=== PATIENT | male | born 1970 | race Caucasian/White ===

== ENCOUNTER → 2024-02-17 07:06 | Outpatient (REF) | payer BC, SELFPAY | LOC: RAD 07:06 | PROVIDERS: ATTENDING PHYSICIAN Internal Medicine | DX: I10 Essential (primary) hypertension (principal); Z82.41 Family history of sudden cardiac death; R93.1 Abnormal findings on diagnostic imaging of heart and coronary circulation; R09.89 Other specified symptoms and signs involving the circulatory and respiratory systems | CPT/HCPCS: 71275; 76770; Q9967 ==

== ENCOUNTER → 2024-08-16 15:02 | Outpatient (REF) | payer BC, SELFPAY | LOC: RAD 15:02 | PROVIDERS: ATTENDING PHYSICIAN Nurse Practitioner Family; FAMILY PHYSICIAN Internal Medicine | DX: R05.3 Chronic cough (principal); J34.89 Other specified disorders of nose and nasal sinuses; J06.9 Acute upper respiratory infection, unspecified | CPT/HCPCS: 71046 ==

== ENCOUNTER 2024-10-04 06:16 | Day surgery (SDC) | payer OTHER, SELFPAY | END 2024-10-04 15:23 | disposition home or self-care (01) | LOC: GI 06:16 | PROVIDERS: ATTENDING PHYSICIAN Surgery | DX: Z12.11 Encounter for screening for malignant neoplasm of colon (principal) | CPT/HCPCS: G0121 ==

== ENCOUNTER 2024-12-08 10:18 | Emergency (ER) | payer OTHER, SELFPAY ==
[2024-12-08 10:22] VITALS: BP 194/117
--- NOTE | 2024-12-08 11:18 | ED.GENMED ---
History of Present Illness
General
Chief Complaint: Cardiac Symptoms
Source: patient
Time Seen by Provider: 12/08/24 11:04
History of Present Illness
History of Present Illness:
54-year-old male with past medical history of hypertension and hyperlipidemia presenting to the ER from outpatient surgery center for evaluation after he was scheduled to undergo a hemorrhoidectomy that was found on routine colonoscopy, upon
checking vital signs was found to be in a new onset atrial fibrillation. Patient without any symptoms. He is denying any chest pain, shortness of breath, palpitations, diaphoresis, exertional dyspnea, orthopnea, cough, fevers or recent illnesses
or any other concerns. He notes that he has seen a regulatory affairs manager once before for routine monitoring of his aorta after his mother had from a [employer] states that the studies all came back normal so he does not follow with a regulatory affairs manager
regularly. Social history was noted for drinking 3 beers a few times per week. Denies any cigarettes or tobacco use.
Past History
Past History
ED Past Medical History: GERD, HTN and Hypercholesterolemia
ED Past Surgical History: None
Social History
Tobacco: Non-smoker
Alcohol: Occasional
Drug: None
Personal:
Living: with family
Review of Systems
Review of Systems
All Other Systems: ROS reviewed and negative except as documented in HPI and ROS
Phy Exam
Physical Exam
Physical Exam:
GENERAL: Alert , in no apparent distress
EYE: clear conjunctiva
NECK: Supple
ENT: o/p clr, mmm.
CARDIAC: Irregularly irregular, tachycardic, rates between 110 bpm in the 146 bpm
LUNGS: Clear breath sounds bilaterally, no acute respiratory distress
ABDOMEN: Soft, without focal tenderness, no r/g, no cvat
NEUROLOGICAL: Alert and oriented
SKIN: Warm and dry, skin intact.
MUSCULOSKELETAL: No edema, well perfused.
PSYCH: Normal and appropriate interaction.
Scores
[id number] Score for Afib Stroke Risk
Age in Years (65=0, 65-74=1, >/=75=2): <65
Sex (Female=+1): Male
Congestive Heart Failure History (Yes=+1): No
Hypertension History (Yes=+1): Yes
Stroke/TIA/Thromboembolism History (Yes=+2): No
Vascular Disease History (Yes=+1): No
Diabetes Mellitus (Yes=+1): No
Score: 1
Anticoagulation Recommendations: Consider anticoagulation (as validated in nonvalvular fib)
Heart Failure Risk
Heart Failure Risk Score: Not Applicable
Heart Score for Chest Pain Patients
STEMI patient?: Not applicable
Withdrawal Assessment of Alcohol
Withdrawal Assessment Completed?: Not applicable
Course
Orders/Labs/Results
Orders:
Orders
12/08/24
Electrocardiogram (*1) Stat
Reason for Study: Chest Pain
Comment: DONE
12/08/24 10:27
Electrocardiogram (*1) Urgent
Reason for Study: Atrial Fibrillation
EKG- Treatment ONCE
12/08/24 11:16
Metoprolol Xl [Toprol Xl] 12.5 mg PO NOW STA
Metoprolol [Lopressor] 5 mg IV NOW STA
12/08/24 11:28
Diltiazem HCl [Cardizem] 10 mg IV NOW STA
12/08/24 11:30
Diltiazem 125 mg/125 ml Nss [Cardizem] 125 mg in 125 ml IV PER PROTOCOL
Initial dose in mg/hr, then titrate:: 5
Titrate to keep:: Heart rate 80-100 bpm
Titrate by mg/hr:: 5 mg/hr
Frequency of titrations (minutes):: 15
Maximum dose in mg/hr:: 15
12/08/24 11:41
Complete Blood Count/With Diff Urgent
Comprehensive Metabolic Panel Urgent
Magnesium Urgent
TSH Reflex To Free T4 Urgent
Abnormal Lab Results
12/08/24
11:41
MCH 31.4 H pg
(27.0-31.0)
MPV 11.3 H fL
(7.4-10.4)
Lymphocytes % 18.6 L %
(20.5-51.1)
Chloride 109 H mmol/L
(98-107)
Glucose 104 H mg/dl
(70-99)
12/08/24 11:41
12/08/24 11:41
Vital Signs
Initial and Last Documented VS:
Initial Vital Signs
Temp Pulse Resp BP Pulse Ox
98.2 F 63 20 194/117 96
12/08/24 10:22 12/08/24 10:22 12/08/24 10:22 12/08/24 10:22 12/08/24 10:22
Last Documented Vital Signs
Temp Pulse Resp BP Pulse Ox
98.2 F 92 10 149/115 97
12/08/24 10:22 12/08/24 13:30 12/08/24 13:30 12/08/24 13:30 12/08/24 13:30
MDM/Problems Addressed
Differential Diagnosis Includes:
New onset afib
Electrolyte imblanace
Thyroid disorder
No symptoms to suggest ACS
MDM/Problems Addressed:
54-year-old male presenting to the ER found to be in new onset atrial fibrillation while having his vital signs checked at the outpatient surgical center. Patient asymptomatic. No history of similar. Currently not on any anticoagulation. Patient
is not a candidate for rhythm control given he is asymptomatic, not currently on thinners and unsure as to when he may have gone into A-fib. Given his heart rate is going up as high as 146 bpm we will treat here with an oral dose of metoprolol as
well as IV dose of Lopressor and monitor his heart rate. Anticipate patient will need close follow-up with cardiology. [id number] score of 1.
Chronic conditions affecting care: HTN
*Pulse Oximetry
SaO2: 96
Oxygen Mode of Delivery: Room air
Patient hypoxic: no
*EKG
Heart Rate: 115
Rate: tachycardiac
Rhythm: a-fib
[place]: normal axis
Ischemia: no ischemia
*Probe Operator Interpretation
Rate: tachycardiac
Heart Rate: 124
Rhythm: a-fib
*Critical Care Note
Total Time (30-74mins, 75-104mins- exclusive of procedures): 30
comment:
Critical care statement: A total of 30 minutes of critical care time was provided for this patient. This includes management of unstable vital signs, evaluation of the patient at bedside, reviewing the patient's pertinent medical records, discussion
with consultants, review of old EKGs and review of pertinent medical records. This time with separate from time utilized to perform the aforementioned documented procedures
Patient Management
Discussion with other providers: [employer]
Escalation/DeEscalation of care consider admission/obs:
Patient's heart rate much improved following IV medication administration. He ultimately feels comfortable being discharged home. I did notify cardiology about patient's workup and need for outpatient follow-up. They will see the patient for
further evaluation. I did prescribe the patient Cardizem 120 mg daily as well as Eliquis 5 mg twice daily. Patient aware of return precautions to the ER.
ED Attending Note
-
Portions of this chart may have been created with voice recognition software.� Occasional wrong word or��sound alike� substitutions may have occurred due to the inherent limitations of voice recognition software.
Discharge Plan
Departure
Patient Disposition: Home (Routine Discharge)
Date of Disposition: 12/08/24
Time of Disposition: 13:43
Patient with high blood pressure during this ER visit?: Yes
Discharge Problem:
Atrial fibrillation
Instructions: Atrial fibrillation (DC), Chest Pain CBC Follow Up
Prescriptions:
New
diltiazem HCl [Cardizem CD] 120 mg capsule,extended release 24hr
120 mg PO DAILY Qty: 30 0RF
Eliquis 5 mg tablet
5 mg PO BID Qty: 30 0RF
No Action
simvastatin [Zocor] 40 mg Tablet
40 mg PO DAILY
losartan-hydrochlorothiazide 100-12.5 mg Tablet
1 tab PO DAILY
cholecalciferol (vitamin D3) [Vitamin D3] 25 mcg (1,000 unit) Tablet
25 mcg PO DAILY
Referrals:
Bill Mahoney DO [Family Provider, Internal Medicine]
Interventions
Interventions:
*Risk Screen - Suicide Last Done: 12/08/24 10:22
*General Assessment Last Done: 12/08/24 11:36
*Neglect/Abuse Screening Last Done: 12/08/24 10:22
*ED- Fall Risk Assessment Last Done: 12/08/24 11:36
*ED COVID-19 Vaccine History Last Done: 12/08/24 11:36
*ED Influenza Vaccine History Last Done: 12/08/24 11:36
*Nursing Disposition Last Done: 12/08/24 14:20
ED- Pulmonary Assessment Last Done: 12/08/24 11:38
ED- Cardiac Assessment Last Done: 12/08/24 11:38
Discharge Date and Time
Discharge Date/Time: 12/08/24 14:20
Print Language: CHINESE
[2024-12-08 11:25] VITALS: BMI 30.4
[2024-12-08 11:35] VITALS: BP 146/96
[2024-12-08] MEDS: CARDIZEM 10 MG IV (11:47)
[2024-12-08] MEDS: CARDIZEM 125 IV (11:48)
[2024-12-08 11:49] LABS: Hematocrit 44.1 % (39.0-52.0); Hemoglobin 16.0 g/dL (13.0-18.0); Mean Corp Hgb Conc. 36.3 g/dL (33.0-37.0); Mean Corpuscular Volume 86.5 fL (80.0-94.0); Nucleated Red Blood Cells % 0 % (-); Platelet Count 175 10^3/uL (130-400); Red Cell Dist. Width 12.2 % (11.5-14.5)
[2024-12-08 12:00] VITALS: BP 161/124
[2024-12-08 12:13] LABS: ALT (SGPT) 47 U/L (0-50); AST (SGOT) 35 U/L (17-59); Albumin 4.6 g/dl (3.5-5.0); Alkaline Phosphatase 57 U/L (38-126); Blood Urea Nitrogen 18 mg/dl (9-20); Calcium 9.3 mg/dl (8.4-10.2); Carbon Dioxide 22 mmol/L (22-30); Chloride 109 mmol/L (98-107); Estimated Creatinine Clearance 104 ml/min; Glucose 104 mg/dl (70-99); Magnesium 2.1 mg/dl (1.6-2.3); Potassium 4.6 mmol/L (3.5-5.1); Sodium 137 mmol/L (135-145); Total Protein 7.2 g/dl (6.3-8.2); eGFR > 60.00
[2024-12-08 12:30] VITALS: BP 153/107
[2024-12-08 13:00] VITALS: BP 142/123
[2024-12-08 13:30] VITALS: BP 149/115
== END 2024-12-08 14:20 | disposition home or self-care (01) ==
LOC: EMR 10:18
PROVIDERS: Physician Assistant Medical; EMERGENCY PHYSICIAN Emergency Medicine; FAMILY PHYSICIAN Internal Medicine
DX: I48.91 Unspecified atrial fibrillation (principal); E78.00 Pure hypercholesterolemia, unspecified; I10 Essential (primary) hypertension
CPT/HCPCS: 99291; 96374; 80053; 83735; 84443; 85025; 93005

== ENCOUNTER → 2025-01-03 12:33 | Outpatient (REF) | payer OTHER, SELFPAY | LOC: RCS 12:33 | PROVIDERS: ATTENDING PHYSICIAN Internal Medicine Cardiovascular Disease; FAMILY PHYSICIAN Internal Medicine | DX: I48.91 Unspecified atrial fibrillation (principal) | CPT/HCPCS: 93306 ==

== ENCOUNTER 2025-02-13 07:05 | Day surgery (SDC) | payer OTHER, SELFPAY | END 2025-02-13 08:55 | disposition home or self-care (01) | LOC: CATH 07:05 | PROVIDERS: ATTENDING PHYSICIAN Student in an Organized Health Care Education/Training Program; FAMILY PHYSICIAN Internal Medicine; OTHER PHYSICIAN Internal Medicine Cardiovascular Disease | DX: I48.91 Unspecified atrial fibrillation (principal); I10 Essential (primary) hypertension; K21.9 Gastro-esophageal reflux disease without esophagitis; E78.00 Pure hypercholesterolemia, unspecified | CPT/HCPCS: 92960; 93005 ==